=== PATIENT | female | born 1955 | race Caucasian/White ===

== ENCOUNTER → 2017-08-28 09:40 | Outpatient (CLI) | payer MEDICAID, SELFPAY ==
[2017-08-28 11:34] LABS: International Normalized Ratio 2.8; Prothrombin Time (Protime)PT. 29.8 SECONDS (11.7-14.9)
[2017-08-28 11:49] LABS: ALB/GLOB Ratio 0.8 RATIO (0.9-2.4); AST(SGOT) 26 U/L (15-37); Alanine Aminotransfer ALT/SGPT 36 U/L (13-56); Albumin, Serum 3.5 g/dL (3.2-5.0); Alkaline Phosphatase 144 U/L (45-117); Anion Gap 4 (5-15); BUN 17 mg/dL (7-18); BUN/Creat Ratio 17.5 RATIO (10-20); Calcium,Total 9.1 mg/dL (8.5-10.1); Chloride 108 mmol/L (98-107); Creatinine, Serum 0.97 mg/dL (0.55-1.02); EST Glomerular Filtration Rate 62 mL/min (>60); Est Glom Filt Rate - Afr Amer 75 mL/min (>60); Globulin 4.6 g/dL (2.2-4.2); Glucose 122 mg/dL (74-106); Potassium 4.7 mmol/L (3.5-5.1); Protein, Total 8.1 g/dL (6.4-8.2); Sodium Level 142 mmol/L (136-145)
== END ==
PROVIDERS: PCP Internal Medicine; Visit Provider Nurse Practitioner
DX: I48.2 Chronic atrial fibrillation (principal); E78.2 Mixed hyperlipidemia
CPT/HCPCS: 36415; 80053; 85610

== ENCOUNTER → 2017-09-25 09:05 | Outpatient (CLI) | payer MEDICAID, SELFPAY ==
[2017-09-25 11:52] LABS: International Normalized Ratio 2.1; Magnesium 2.1 mg/dL (1.6-2.6); Prothrombin Time (Protime)PT. 23.5 SECONDS (11.7-14.9)
== END ==
PROVIDERS: PCP Internal Medicine; Visit Provider Nurse Practitioner
DX: I48.2 Chronic atrial fibrillation (principal); Z51.81 Encounter for therapeutic drug level monitoring
CPT/HCPCS: 36415; 83735; 85610

== ENCOUNTER → 2017-10-23 10:13 | Outpatient (CLI) | payer MEDICAID, SELFPAY ==
[2017-10-23 11:15] LABS: Prothrombin Time Fingerstick 18.4 SEC (11.9-14.4)
== END ==
PROVIDERS: PCP Internal Medicine; Visit Provider Internal Medicine
DX: I48.2 Chronic atrial fibrillation (principal)
CPT/HCPCS: 36416; 85610

== ENCOUNTER → 2017-11-06 09:33 | Outpatient (CLI) | payer MEDICAID, SELFPAY ==
[2017-11-06 10:56] LABS: Prothrombin Time Fingerstick 29.5 SEC (11.9-14.4)
== END ==
PROVIDERS: PCP Internal Medicine; Visit Provider Internal Medicine
DX: I48.2 Chronic atrial fibrillation (principal)
CPT/HCPCS: 36416; 85610

== ENCOUNTER → 2017-11-20 08:21 | Outpatient (CLI) | payer MEDICAID, SELFPAY ==
[2017-11-20 09:36] LABS: Prothrombin Time Fingerstick 26.9 SEC (11.9-14.4)
== END ==
PROVIDERS: PCP Internal Medicine; Visit Provider Internal Medicine
DX: I48.2 Chronic atrial fibrillation (principal)
CPT/HCPCS: 36416; 85610

== ENCOUNTER → 2017-12-04 08:33 | Outpatient (CLI) | payer MEDICAID, SELFPAY ==
[2017-12-04 09:45] LABS: Prothrombin Time Fingerstick 34.9 SEC (11.9-14.4)
== END ==
PROVIDERS: PCP Internal Medicine; Visit Provider Internal Medicine
DX: I48.2 Chronic atrial fibrillation (principal)
CPT/HCPCS: 36416; 85610

== ENCOUNTER → 2017-12-18 08:18 | Outpatient (CLI) | payer MEDICAID, SELFPAY ==
[2017-12-18 14:40] LABS: Prothrombin Time Fingerstick 29.4 SEC (11.9-14.4)
== END ==
PROVIDERS: PCP Internal Medicine; Visit Provider Internal Medicine
DX: I48.2 Chronic atrial fibrillation (principal)
CPT/HCPCS: 36416; 85610

== ENCOUNTER → 2017-12-31 08:43 | Outpatient (CLI) | payer MEDICAID, SELFPAY ==
[2017-12-31 11:00] LABS: Prothrombin Time Fingerstick 33.8 SEC (11.9-14.4)
== END ==
PROVIDERS: PCP Internal Medicine; Visit Provider Internal Medicine
DX: I48.2 Chronic atrial fibrillation (principal)
CPT/HCPCS: 36416; 85610

== ENCOUNTER → 2018-01-15 08:30 | Outpatient (CLI) | payer MEDICAID, SELFPAY ==
[2018-01-15 10:06] LABS: Prothrombin Time Fingerstick 29.1 SEC (11.9-14.4)
== END ==
PROVIDERS: PCP Internal Medicine; Visit Provider Internal Medicine
DX: I48.2 Chronic atrial fibrillation (principal)
CPT/HCPCS: 36416; 85610

== ENCOUNTER → 2018-02-12 08:59 | Outpatient (CLI) | payer MEDICAID, SELFPAY ==
[2018-02-12 10:25] LABS: Prothrombin Time Fingerstick 33.1 SEC (11.9-14.4)
== END ==
PROVIDERS: PCP Internal Medicine; Visit Provider Internal Medicine
DX: I48.2 Chronic atrial fibrillation (principal)
CPT/HCPCS: 36416; 85610

== ENCOUNTER → 2018-03-11 08:13 | Outpatient (CLI) | payer MEDICAID, SELFPAY ==
[2018-03-11 09:46] LABS: Absolute Lymphocyte Count 1.61 X10^3/ul (0.83-4.51); Absolute Neutrophil Count 3.4 X10^3/uL (2.0-7.7); Basophil# 0.01 X10^3/uL; Basophil% 0.2 % (0-1); Eosinophil# 0.06 X10^3/uL; Eosinophils% 1.1 % (0-5); Hematocrit 39.1 % (37-47); Hemoglobin 12.9 g/dl (12.0-15.0); Lymphocyte # 1.61 X10^3/ul (4.0); Lymphocyte % 29.7 % (19-41); Mean Corpuscular Hgb 30.9 pg (27.0-32.0); Mean Corpuscular Volume 93.8 fL (81-99); Mean Platelet Vol. 9.6 fl (6.2-12.0); Monocyte# 0.34 X10^3/uL; Monocyte% 6.3 % (0-10); Neutrophil % 62.7 % (47-70); Platelet Count 192 K/mm3 (150-450); RBC Distribution Width CV 13.1 % (11.6-14.6); RBC Distribution Width SD 44.8 fl (35.1-43.9); Red Blood Count 4.17 M/mm3 (4.2-5.4); White Blood Count 5.4 K/mm3 (4.4-11.0)
[2018-03-11 09:48] LABS: POSITIVE COUNT NO; POSITIVE DIFFERENTIAL NO; POSITIVE MORPHOLOGY NO
[2018-03-11 10:06] LABS: International Normalized Ratio 2.6; Prothrombin Time (Protime)PT. 28.2 SECONDS (11.7-14.9)
[2018-03-11 10:20] LABS: ALB/GLOB Ratio 0.8 RATIO (0.9-2.4); AST(SGOT) 24 U/L (15-37); Alanine Aminotransfer ALT/SGPT 35 U/L (13-56); Albumin, Serum 3.7 g/dL (3.2-5.0); Alkaline Phosphatase 149 U/L (45-117); Anion Gap 6 (5-15); BUN 15 mg/dL (7-18); BUN/Creat Ratio 17.5 RATIO (10-20); Calcium,Total 8.7 mg/dL (8.5-10.1); Chloride 107 mmol/L (98-107); Cholesterol 169 mg/dL (200); Creatinine, Serum 0.86 mg/dL (0.55-1.02); EST Glomerular Filtration Rate 72 mL/min (>60); Est Glom Filt Rate - Afr Amer 87 mL/min (>60); Globulin 4.7 g/dL (2.2-4.2); Glucose 98 mg/dL (74-106); High Density Lipoprotein 57 mg/dL; Potassium 4.3 mmol/L (3.5-5.1); Protein, Total 8.4 g/dL (6.4-8.2); Sodium Level 139 mmol/L (136-145); Triglycerides 207 mg/dL; Very Low Density Lipoprotein 41 mg/dL (5-40)
[2018-03-11 10:30] LABS: Digoxin Level 1.06 ng/mL (0.80-2.00)
== END ==
PROVIDERS: PCP Internal Medicine; Visit Provider Internal Medicine
DX: I48.2 Chronic atrial fibrillation (principal); E78.2 Mixed hyperlipidemia
CPT/HCPCS: 36415; 80053; 80061; 80162; 85025; 85610

== ENCOUNTER 2018-03-18 13:48 | Emergency (ER) | payer MEDICAID, SELFPAY ==
[2018-03-18 13:50] VITALS: BP 147/89; PULSE 102; RESP 23; TEMP 37.3; O2SAT 93; BMI 27.1
[2018-03-18 13:56] VITALS: BP 147/89; PULSE 101; RESP 20; TEMP 37.3; O2SAT 94
--- NOTE | 2018-03-18 14:28 | EKG12_ITS ---
Test Reason : ALTERED LOC Blood Pressure : / mmHG Vent. Rate : 109 BPM Atrial Rate : 094 BPM P-R Int : 000 ms QRS Dur : 080 ms QT Int : 342 ms P-R-T Axes : 000 -06 -17 degrees QTc Int : 460 ms Atrial fibrillation Nonspecific ST and T wave abnormality Abnormal ECG Confirmed by ALANNAH VÁZQUEZ, GABINO ([id number]), photograph editor STALIN SALINAS ([id number]) on 03/23/2018 3:53:17 PM Referred By: COMPA Confirmed By:GABINO JAFFE MD
--- NOTE | 2018-03-18 14:28 | RAD_ITS ---
STUDY: X-RAY CHEST REASON FOR EXAM: Female, 62 years old. Increased agitation and combativeness TECHNIQUE: Single AP portable view of the chest. COMPARISON: None. FINDINGS: There are monitoring devices. There are interstitial fibrotic changes of the lungs. There is no demonstrated pleural abnormality. There is moderate cardiac enlargement. Normal mediastinum and adelso. Normal visualized pulmonary arteries. Normal visualized aortic arch and descending thoracic aorta. Normal visualized thoracic spine. Normal visualized ribs, clavicles, and shoulders. There is no demonstrated abnormality of the visualized soft tissue structures of the upper abdomen. RAD/Chest 1 View (Portable) IMPRESSION: Cardiac enlargement. Fibrotic densities. Electronically Signed: Eliud Elizabeth MD at 16:01 EDT , Service support ,
[2018-03-18 14:44] LABS: Absolute Lymphocyte Count 1.27 X10^3/ul (0.83-4.51); Absolute Neutrophil Count 7.1 X10^3/uL (2.0-7.7); Basophil# 0.03 X10^3/uL; Basophil% 0.3 % (0-1); Eosinophil# 0.06 X10^3/uL; Eosinophils% 0.7 % (0-5); Hematocrit 39.3 % (37-47); Hemoglobin 12.9 g/dl (12.0-15.0); Lymphocyte # 1.27 X10^3/ul (4.0); Lymphocyte % 14.2 % (19-41); Mean Corp Hgb Conc 32.8 g/gl (32-36); Mean Corpuscular Hgb 30.6 pg (27.0-32.0); Mean Corpuscular Volume 93.3 fL (81-99); Mean Platelet Vol. 9.8 fl (6.2-12.0); Monocyte# 0.53 X10^3/uL; Monocyte% 5.9 % (0-10); Neutrophil # 7.06 X10^3/uL (2.7-7.7); Neutrophil % 78.8 % (47-70); Platelet Count 203 K/mm3 (150-450); RBC Distribution Width CV 13.1 % (11.6-14.6); RBC Distribution Width SD 44.3 fl (35.1-43.9); Red Blood Count 4.21 M/mm3 (4.2-5.4)
[2018-03-18 14:54] LABS: POSITIVE COUNT NO; POSITIVE DIFFERENTIAL NO; POSITIVE MORPHOLOGY NO
[2018-03-18 14:56] LABS: International Normalized Ratio 2.4; Prothrombin Time (Protime)PT. 25.9 SECONDS (11.7-14.9)
[2018-03-18 14:57] LABS: ALB/GLOB Ratio 0.7 RATIO (0.9-2.4); AST(SGOT) 22 U/L (15-37); Alanine Aminotransfer ALT/SGPT 33 U/L (13-56); Albumin, Serum 3.6 g/dL (3.2-5.0); Alkaline Phosphatase 148 U/L (45-117); Anion Gap 7 (5-15); BUN 22 mg/dL (7-18); BUN/Creat Ratio 19.5 RATIO (10-20); Calcium,Total 8.7 mg/dL (8.5-10.1); Chloride 108 mmol/L (98-107); Creatinine, Serum 1.13 mg/dL (0.55-1.02); EST Glomerular Filtration Rate 52 mL/min (>60); Est Glom Filt Rate - Afr Amer 63 mL/min (>60); Estimated Creatinine Clearance 37.55 ml/min; Glucose 138 mg/dL (74-106); Potassium 4.4 mmol/L (3.5-5.1); Protein, Total 8.6 g/dL (6.4-8.2); Sodium Level 140 mmol/L (136-145)
[2018-03-18 15:14] LABS: Mucous, Urine 0 SEEN /hpf (<or=2+)
[2018-03-18 15:16] LABS: Color, Urine Yellow (Yellow); Glucose, Dipstick Normal (Normal); Ketone-Dipstick 5 mg/dl (Negative); Leukocyte Esterase-Dipstick 100 /ul (Negative); Nitrite-Dipstick Negative (Negative); Occult Blood-Urine 150 /ul (Negative); Protein-Dipstick 100 mg/dl (Negative); Urine Bilirubin Dipstick Negative (Negative); Urine Clarity Sl. Cloudy (Clear); Urine Urobilinogen Normal (Normal)
[2018-03-18 15:58] LABS: Bacteria 4+ /hpf (None Seen); Red Blood Cells-Urine 0-5 SEEN /hpf (0-5); Squamous Epithelial Cells - UA 0-5 SEEN /hpf (5-10); White Blood Cells 0-5 SEEN /hpf (0-5)
[2018-03-18 15:59] LABS: Amorphous Sediment 1+
[2018-03-18 16:03] LABS: Hyaline Cast 0-5 SEEN /lpf (0-5)
--- NOTE | 2018-03-18 16:14 | CT_ITS ---
STUDY: CT BRAIN WITHOUT CONTRAST REASON FOR EXAM: Female, 62 years old. Altered level of consciousness. Increased agitation. History of stroke. RADIATION DOSAGE (If Supplied By Facility): CTDIvol = ( 45 ) mGy, DLP = ( 796 ) mGycm TECHNIQUE: Transaxial CT imaging of the brain was performed without administration of intravenous contrast material. Individualized dose optimization techniques were used for this CT. COMPARISON: None. FINDINGS: Normal soft tissue structures. Normal calvarium. 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 There is mild cerebral atrophy with widening of the extra-axial spaces and ventricular dilatation. There is encephalomalacia with volume loss of the left frontal, temporal, and parietal regions in the middle cerebral artery territory. There is volume loss and encephalomalacia of the right medial occipital lobe . Normal basal ganglia and thalami. Normal brainstem. Normal cerebellum. There is no intracranial hemorrhage. There are no findings of an acute ischemic infarction. Normal visualized paranasal sinuses. CT/Brain/Head without Contrast IMPRESSION: Chronic involutional changes of the brain. Prior left middle cerebral artery territory infarct. Prior right posterior cerebral artery territory infarct. Electronically Signed: Eliud Elizabeth MD at 16:47 EDT , Service support ,
[2018-03-18 16:22] LABS: Phenytoin (Dilantin) Level 8.4 mL (10.0-20.0)
[2018-03-18 16:38] VITALS: BP 152/120; PULSE 89; RESP 21; O2SAT 95
--- NOTE | 2018-03-18 16:38 | ED.VISSUMM ---
- ER Visit Summary Date of Service: 03/18/18 Chief Complaint: Altered level of consciousness History of Present Illness: The patient is a 62 F who lives at home with her family. He has history of prior stroke resulting in disabilities.. Apparently today she had a heart doctor appointment and the patient became combative stating she did not want to go because she did not want to have surgery. Apparently this is been an issue in the past but not for the past several years. Patient has a history of seizure disorder for which she takes Dilantin but family states that is actually nonepileptic seizures but she will not will not go without her Dilantin. She has a history of stroke resulting in some behavioral issues. Also known history of atrial fibrillation and had a valve repair as a child. She is on Coumadin as well as digoxin. Patient states that she has no complaints at the current time other than she does not want surgery. She also states that she is with twins and cannot wait to give . She denies any auditory hallucinations. No suicidal homicidal ideation. Physical Examination: Afebrile vital signs are stable Gen: Well-nourished well-developed Head: Normocephalic atraumatic Eyes: Perrl EOMI ENT: TMs clear no rhinorrhea moist mucous membranes Neck: Supple no lymphadenopathy no JVD nontender CVS: Irregularly irregular rhythm no murmurs normal S1-S2 Respiratory: No distress clear to auscultation bilaterally chest nontender Abdomen: Soft nontender nondistended normal bowel sounds no masses Back: Nontender Extremity: Nontender no edema Skin: Normal color no rash Neuro: alert orientated ?3 CN II-XII intact normal strength sensation reflexes gait cerebellar Psych: Normal affect normal mood Test Results: EKG shows atrial fibrillation at a rate of 109. This however has varied on the monitor and is mostly in the 90s. CBC chemistries with a creatinine 1.13 BUN of 22. INR 2.4. Liver enzymes normal. Urinalysis 4+ bacteria but negative nitrates 0-5 white 2-5 red 0-5 epithelial cells. Dilantin subtherapeutic at 8.4. Chest x-ray is negative. CT of the brain does not show any acute findings. Emergency Department Course and Treatment: If the today's visit is mostly behavioral in nature and probably component of geriatric psych. I think she would benefit from psychiatric care however family does not wish to have a crisis evaluation tonight stating that caregiver cannot drive in the dark. They have asked that I write some low-dose Xanax which the patient has used in the past with good results. I will also refer them to counseling center. I will contact the counselor almond paste molder helen for referral. Impression: 1. Altered level consciousness resolved 2. Behavioral disturbance This note was generated with [employer] dictation software. It may contain incorrect words, spelling, and punctuation that were not noted in review of the chart prior to signing ED Disposition - Plan for ED Patient: Disposition: Home or Assisted Living Chief Complaint: Alt LOC Instructions: ED Altered Loc Prescriptions: ALPRAZolam [Xanax] 0.5 mg PO BID PRN 8 Days #16 tab PRN Reason: Anxiety Referrals: Chuck Rivera MD [Primary Care Provider] - As soon as possible Counseling,Center [GROUP OF PHYSICIANS] - As soon as possible
--- NOTE | 2018-03-18 16:45 | ED.DCSUM_ITS ---
- ER Visit Summary Date of Service: 03/18/18 Chief Complaint: Altered level of consciousness History of Present Illness: The patient is a 62 F who lives at home with her family. He has history of prior stroke resulting in disabilities.. Apparently today she had a heart doctor appointment and the patient became combative stating she did not want to go because she did not want to have surgery. Apparently this is been an issue in the past but not for the past several years. Patient has a history of seizure disorder for which she takes Dilantin but family states that is actually nonepileptic seizures but she will not will not go without her Dilantin. She has a history of stroke resulting in some be havioral issues. Also known history of atrial fibrillation and had a valve repair as a child. She is on Coumadin as well as digoxin. Patient states that she has no complaints at the current time other than she does not want surgery. She also states that she is with twins and cannot wait to give . She denies any auditory hallucinations. No suicidal homicidal ideation. Physical Examination: Afebrile vital signs are stable Gen: Well-nourished well-developed Head: Normocephalic atraumatic Eyes: Perrl EOMI ENT: TMs clear no rhinorrhea moist mucous membranes Neck: Supple no lymphadenopathy no JVD nontender CVS: Irregularly irregular rhythm no murmurs normal S1-S2 Respiratory: No distress clear to auscultation bilaterally chest nontender Abdomen: Soft nontender nondistended normal bowel sounds no masses Back: Nontender Extremity: Nontender no edema Skin: Normal color no rash Neuro: alert orientated ?3 CN II-XII intact normal strength sensation reflexes gait cerebellar Psych: Normal affect normal mood Test Results: EKG shows atrial fibrillation at a rate of 109. This however has varied on the monitor and is mostly in the 90s. CBC chemistries with a creatinine 1.13 BUN of 22. INR 2.4. Liver enzymes normal. Urinalysis 4+ bacteria but negative nitrates 0-5 white 2-5 red 0-5 epithelial cells. Dilantin subtherapeutic at 8.4. Chest x-ray is negative. CT of the brain does not show any acute findings. Emergency Department Course and Treatment: If the today's visit is mostly be havioral in nature and probably component of geriatric psych. I think she would benefit from psychiatric care however family does not wish to have a crisis evaluation tonight stating that caregiver cannot drive in the dark. They have asked that I write some low-dose Xanax which the patient has used in the past with good results. I will also refer them to counseling center. I [facility] the counselor [facility] for [facility]. Impression: 1. Altered level consciousness resolved 2. Behavioral disturbance This note was generated with [employer] dictation software. It may contain incorrect words, spelling, and punctuation that were not noted in review of the chart prior to signing ED Disposition - Plan for ED Patient: Disposition: Home or Assisted Living Chief Complaint: Alt LOC Instructions: ED Altered Loc Prescriptions: ALPRAZolam [Xanax] 0.5 mg PO BID PRN 8 Days #16 tab PRN Reason: Anxiety Referrals: Chuck Rivera MD [Primary Care Provider] - As soon as possible Counseling,Center [GROUP OF PHYSICIANS] - As soon as possible
[2018-03-18 16:46] LABS: Digoxin Level 1.02 ng/mL (0.80-2.00)
[2018-03-18 17:30] VITALS: BP 153/99; PULSE 91; RESP 18; O2SAT 99
== END 2018-03-18 17:30 | disposition home or self-care (01) ==
PROVIDERS: Emergency Provider Emergency Medicine; Family Provider Internal Medicine; PCP Internal Medicine
DX: R40.4 Transient alteration of awareness (principal); F91.9 Conduct disorder, unspecified; G40.909 Epilepsy, unspecified, not intractable, without status epilepticus; I48.91 Unspecified atrial fibrillation; Z79.01 Long term (current) use of anticoagulants; Z79.899 Other long term (current) drug therapy; Z87.891 Personal history of nicotine dependence; Z86.73 Personal history of transient ischemic attack (TIA), and cerebral infarction without residual deficits
CPT/HCPCS: 70450; 71045; 80053; 80162; 80185; 81001; 85025; 85610; 93005; 99285

== ENCOUNTER → 2018-04-10 09:11 | Outpatient (CLI) | payer MEDICAID, SELFPAY ==
[2018-04-10 10:26] LABS: Prothrombin Time Fingerstick 30.6 SEC (11.9-14.4)
== END ==
PROVIDERS: Family Provider Internal Medicine; PCP Internal Medicine; Visit Provider Internal Medicine
DX: I48.2 Chronic atrial fibrillation (principal)
CPT/HCPCS: 36416; 85610

== ENCOUNTER → 2018-05-13 08:53 | Outpatient (CLI) | payer MEDICAID, SELFPAY | PROVIDERS: Family Provider Internal Medicine; PCP Internal Medicine; Visit Provider Internal Medicine | DX: I48.2 Chronic atrial fibrillation (principal) | CPT/HCPCS: 36416; 85610 ==

== ENCOUNTER → 2018-06-11 08:32 | Outpatient (CLI) | payer MEDICAID, SELFPAY ==
[2018-06-11 10:25] LABS: Prothrombin Time Fingerstick 27.9 SEC (11.9-14.4)
== END ==
PROVIDERS: Family Provider Internal Medicine; PCP Internal Medicine; Visit Provider Internal Medicine
DX: I48.2 Chronic atrial fibrillation (principal)
CPT/HCPCS: 36416; 85610

== ENCOUNTER → 2018-07-10 08:23 | Outpatient (CLI) | payer MEDICAID, SELFPAY ==
[2018-07-10 09:51] LABS: Prothrombin Time Fingerstick 27.4 SEC (11.9-14.4)
== END ==
PROVIDERS: Family Provider Internal Medicine; PCP Internal Medicine; Visit Provider Internal Medicine
DX: I48.2 Chronic atrial fibrillation (principal)
CPT/HCPCS: 36416; 85610

== ENCOUNTER → 2018-08-07 09:01 | Outpatient (CLI) | payer MEDICAID, SELFPAY ==
[2018-08-07 10:26] LABS: Prothrombin Time Fingerstick 51.4 SEC (11.9-14.4)
[2018-08-07 10:45] LABS: Prothrombin Time (Protime)PT. 40.4 SECONDS (11.7-14.9)
[2018-08-07 10:54] LABS: International Normalized Ratio 4.1
== END ==
PROVIDERS: Family Provider Internal Medicine; PCP Internal Medicine; Visit Provider Internal Medicine
DX: I48.2 Chronic atrial fibrillation (principal)
CPT/HCPCS: 36416; 85610

== ENCOUNTER → 2018-08-14 09:19 | Outpatient (CLI) | payer MEDICAID, SELFPAY ==
[2018-08-14 10:30] LABS: International Normalized Ratio 2.1; Prothrombin Time (Protime)PT. 23.4 SECONDS (11.7-14.9)
== END ==
PROVIDERS: Family Provider Internal Medicine; PCP Internal Medicine; Visit Provider Internal Medicine
DX: I48.2 Chronic atrial fibrillation (principal)
CPT/HCPCS: 36415; 85610

== ENCOUNTER → 2018-08-21 08:15 | Outpatient (CLI) | payer MEDICAID, SELFPAY ==
[2018-08-21 09:46] LABS: Prothrombin Time Fingerstick 46.2 SEC (11.9-14.4)
== END ==
PROVIDERS: Family Provider Internal Medicine; PCP Internal Medicine; Visit Provider Internal Medicine
DX: I48.2 Chronic atrial fibrillation (principal)
CPT/HCPCS: 36416; 85610

== ENCOUNTER → 2018-08-24 09:07 | Outpatient (CLI) | payer MEDICAID, SELFPAY ==
[2018-08-24 11:16] LABS: International Normalized Ratio 1.9; Prothrombin Time (Protime)PT. 21.9 SECONDS (11.7-14.9)
== END ==
PROVIDERS: Family Provider Internal Medicine; PCP Internal Medicine; Visit Provider Internal Medicine
DX: I48.2 Chronic atrial fibrillation (principal)
CPT/HCPCS: 36415; 85610

== ENCOUNTER → 2018-09-01 09:31 | Outpatient (CLI) | payer MEDICAID, SELFPAY ==
[2018-09-01 11:01] LABS: Prothrombin Time Fingerstick 25.5 SEC (11.9-14.4)
== END ==
PROVIDERS: Family Provider Internal Medicine; PCP Internal Medicine; Visit Provider Internal Medicine
DX: I48.2 Chronic atrial fibrillation (principal)
CPT/HCPCS: 36416; 85610

== ENCOUNTER → 2018-09-15 | Outpatient (CLI) | payer MEDICAID, SELFPAY ==
[2018-09-15 10:26] LABS: Prothrombin Time Fingerstick 38.8 SEC (11.9-14.4)
== END | disposition home or self-care (01) ==
LOC: LAB 09:07
PROVIDERS: Family Provider Internal Medicine; PCP Internal Medicine; Visit Provider Internal Medicine
DX: I48.2 Chronic atrial fibrillation (principal)
CPT/HCPCS: 36416; 85610

== ENCOUNTER → 2018-09-29 | Outpatient (CLI) | payer MEDICAID, SELFPAY ==
[2018-09-29 09:36] LABS: Hematocrit 38.5 % (37-47); Hemoglobin 12.6 g/dl (12.0-15.0); Mean Corp Hgb Conc 32.7 g/gl (32-36); Mean Corpuscular Hgb 30.2 pg (27.0-32.0); Mean Corpuscular Volume 92.3 fL (81-99); Mean Platelet Vol. 9.5 fl (6.2-12.0); Platelet Count 220 K/mm3 (150-450); RBC Distribution Width CV 13.1 % (11.6-14.6); RBC Distribution Width SD 43.6 fl (35.1-43.9); Red Blood Count 4.17 M/mm3 (4.2-5.4); White Blood Count 6.3 K/mm3 (4.4-11.0)
[2018-09-29 09:37] LABS: Scan Indicated on CBC? Y/N NO
[2018-09-29 09:48] LABS: ALB/GLOB Ratio 0.7 RATIO (0.9-2.4); AST(SGOT) 21 U/L (15-37); Alanine Aminotransfer ALT/SGPT 28 U/L (13-56); Albumin, Serum 3.7 g/dL (3.2-5.0); Alkaline Phosphatase 96 U/L (45-117); Anion Gap 3 (5-15); BUN 13 mg/dL (7-18); Calcium,Total 9.3 mg/dL (8.5-10.1); Chloride 108 mmol/L (98-107); Cholesterol 209 mg/dL (200); EST Glomerular Filtration Rate 60 mL/min (>60); Est Glom Filt Rate - Afr Amer 72 mL/min (>60); Glucose 92 mg/dL (74-106); High Density Lipoprotein 54 mg/dL; Potassium 5.5 mmol/L (3.5-5.1); Protein, Total 8.7 g/dL (6.4-8.2); Sodium Level 140 mmol/L (136-145); Triglycerides 215 mg/dL; Very Low Density Lipoprotein 43 mg/dL (5-40)
[2018-09-29 09:49] LABS: International Normalized Ratio 2.1; Prothrombin Time (Protime)PT. 23.6 SECONDS (11.7-14.9)
[2018-09-29 10:24] LABS: Digoxin Level 1.52 ng/mL (0.80-2.00); Phenytoin (Dilantin) Level 3.1 mL (10.0-20.0)
== END | disposition home or self-care (01) ==
LOC: LAB 08:37
PROVIDERS: Family Provider Internal Medicine; PCP Internal Medicine; Visit Provider Internal Medicine
DX: G40.909 Epilepsy, unspecified, not intractable, without status epilepticus (principal); E78.2 Mixed hyperlipidemia; I48.2 Chronic atrial fibrillation
CPT/HCPCS: 36415; 80053; 80061; 80162; 80185; 85027; 85610

== ENCOUNTER → 2018-10-13 | Outpatient (CLI) | payer MEDICAID, SELFPAY ==
[2018-10-13 11:01] LABS: Prothrombin Time Fingerstick 28.8 SEC (11.9-14.4)
== END | disposition home or self-care (01) ==
LOC: LAB 09:05
PROVIDERS: Family Provider Internal Medicine; PCP Internal Medicine; Visit Provider Internal Medicine
DX: I48.2 Chronic atrial fibrillation (principal)
CPT/HCPCS: 36416; 85610

== ENCOUNTER → 2018-11-03 | Outpatient (CLI) | payer MEDICAID, SELFPAY ==
[2018-11-03 10:00] LABS: Prothrombin Time Fingerstick 44.3 SEC (11.9-14.4)
[2018-11-03 10:36] LABS: International Normalized Ratio 4.2; Prothrombin Time (Protime)PT. 41.1 SECONDS (11.7-14.9)
== END | disposition home or self-care (01) ==
LOC: LAB 08:29
PROVIDERS: Family Provider Internal Medicine; PCP Internal Medicine; Visit Provider Internal Medicine
DX: I48.2 Chronic atrial fibrillation (principal)
CPT/HCPCS: 36416; 85610

== ENCOUNTER → 2018-11-10 | Outpatient (REF) | payer MEDICAID, SELFPAY ==
[2018-11-10 12:10] LABS: Prothrombin Time Fingerstick 24.2 SEC (11.9-14.4)
== END | disposition home or self-care (01) ==
LOC: LAB 08:51
PROVIDERS: Family Provider Internal Medicine; PCP Internal Medicine; Visit Provider Internal Medicine
DX: I48.2 Chronic atrial fibrillation (principal)
CPT/HCPCS: 36416; 85610

== ENCOUNTER → 2018-11-24 | Outpatient (CLI) | payer MEDICAID, SELFPAY ==
[2018-11-24 10:40] LABS: Prothrombin Time Fingerstick 30.8 SEC (11.9-14.4)
== END | disposition home or self-care (01) ==
LOC: LAB 09:26
PROVIDERS: Visit Provider Internal Medicine
DX: I48.2 Chronic atrial fibrillation (principal)
CPT/HCPCS: 36416; 85610

== ENCOUNTER → 2018-12-08 | Outpatient (CLI) | payer MEDICAID, SELFPAY ==
[2018-12-08 11:20] LABS: Prothrombin Time Fingerstick 40.7 SEC (11.9-14.4)
[2018-12-08 11:53] LABS: International Normalized Ratio 3.4; Prothrombin Time (Protime)PT. 34.5 SECONDS (11.7-14.9)
== END | disposition home or self-care (01) ==
LOC: LAB 08:36
PROVIDERS: Visit Provider Internal Medicine
DX: I48.2 Chronic atrial fibrillation (principal)
CPT/HCPCS: 36416; 85610

== ENCOUNTER → 2018-12-22 09:21 | Outpatient (CLI) | payer MEDICAID, SELFPAY ==
[2018-12-22 11:30] LABS: Prothrombin Time Fingerstick 38.5 SEC (11.9-14.4)
== END ==
PROVIDERS: Visit Provider Internal Medicine
DX: I48.2 Chronic atrial fibrillation (principal)
CPT/HCPCS: 36416; 85610

== ENCOUNTER → 2019-01-05 | Outpatient (CLI) | payer MEDICAID, SELFPAY ==
[2019-01-05 10:25] LABS: Prothrombin Time Fingerstick 28.9 SEC (11.9-14.4)
== END | disposition home or self-care (01) ==
LOC: LAB 07:13
PROVIDERS: Visit Provider Internal Medicine
DX: I48.2 Chronic atrial fibrillation (principal)
CPT/HCPCS: 36416; 85610

== ENCOUNTER → 2019-01-26 | Outpatient (CLI) | payer MEDICAID, SELFPAY ==
[2019-01-26 09:53] LABS: International Normalized Ratio 2.9; Prothrombin Time (Protime)PT. 30.3 SECONDS (11.7-14.9)
[2019-01-26 09:59] LABS: Anion Gap 2 (5-15); BUN 20 mg/dL (7-18); BUN/Creat Ratio 15.9 RATIO (10-20); Chloride 107 mmol/L (98-107); Creatinine, Serum 1.26 mg/dL (0.55-1.02); EST Glomerular Filtration Rate 46 mL/min (>60); Est Glom Filt Rate - Afr Amer 55 mL/min (>60); Glucose 96 mg/dL (74-106); Potassium 5.1 mmol/L (3.5-5.1); Sodium Level 140 mmol/L (136-145)
== END | disposition home or self-care (01) ==
LOC: LABSPEC 08:31
PROVIDERS: Visit Provider Internal Medicine
DX: I34.0 Nonrheumatic mitral (valve) insufficiency (principal); I48.2 Chronic atrial fibrillation
CPT/HCPCS: 36415; 80048; 85610

== ENCOUNTER → 2019-02-16 09:15 | Outpatient (CLI) | payer MEDICAID, SELFPAY ==
[2019-02-16 12:20] LABS: Prothrombin Time Fingerstick 30.4 SEC (11.9-14.4)
== END ==
PROVIDERS: Visit Provider Internal Medicine
DX: I48.2 Chronic atrial fibrillation (principal)
CPT/HCPCS: 36416; 85610

== ENCOUNTER → 2019-03-09 09:00 | Outpatient (CLI) | payer MEDICAID, SELFPAY ==
[2019-03-09 13:08] LABS: Prothrombin Time Fingerstick 34.4 SEC (11.9-14.4)
== END ==
PROVIDERS: Visit Provider Internal Medicine
DX: I48.20 Chronic atrial fibrillation, unspecified (principal)
CPT/HCPCS: 36416; 85610

== ENCOUNTER → 2019-03-23 08:59 | Outpatient (CLI) | payer MEDICAID, SELFPAY ==
[2019-03-23 13:15] LABS: Prothrombin Time Fingerstick 37.4 SEC (11.9-14.4)
== END ==
PROVIDERS: Visit Provider Internal Medicine
DX: I48.20 Chronic atrial fibrillation, unspecified (principal)
CPT/HCPCS: 36416; 85610

== ENCOUNTER → 2019-04-06 | Outpatient (CLI) | payer MEDICAID, SELFPAY ==
[2019-04-06 13:38] LABS: Prothrombin Time Fingerstick 30.4 SEC (11.9-14.4)
== END | disposition home or self-care (01) ==
LOC: LAB 09:12
PROVIDERS: Visit Provider Internal Medicine
DX: I48.20 Chronic atrial fibrillation, unspecified (principal)
CPT/HCPCS: 36416; 85610

== ENCOUNTER → 2019-04-20 09:05 | Outpatient (CLI) | payer MEDICAID, SELFPAY ==
[2019-04-20 11:45] LABS: Prothrombin Time Fingerstick 31.8 SEC (11.9-14.4)
== END ==
PROVIDERS: Visit Provider Internal Medicine
DX: I48.20 Chronic atrial fibrillation, unspecified (principal)
CPT/HCPCS: 36416; 85610

== ENCOUNTER → 2019-05-04 08:59 | Outpatient (CLI) | payer MEDICAID, SELFPAY ==
[2019-05-04 10:56] LABS: Prothrombin Time Fingerstick 31.8 SEC (11.9-14.4)
== END ==
PROVIDERS: Visit Provider Internal Medicine
DX: I48.20 Chronic atrial fibrillation, unspecified (principal)
CPT/HCPCS: 36416; 85610

== ENCOUNTER → 2019-05-25 05:05 | Outpatient (CLI) | payer MEDICAID, SELFPAY | PROVIDERS: Visit Provider Internal Medicine | DX: I48.20 Chronic atrial fibrillation, unspecified (principal) | CPT/HCPCS: 36416; 85610 ==

== ENCOUNTER → 2019-06-22 08:47 | Outpatient (CLI) | payer MEDICAID, SELFPAY ==
[2019-06-22 10:06] LABS: Prothrombin Time Fingerstick 32.8 SEC (11.9-14.4)
== END ==
PROVIDERS: Visit Provider Internal Medicine
DX: I48.20 Chronic atrial fibrillation, unspecified (principal)
CPT/HCPCS: 36416; 85610

== ENCOUNTER → 2019-07-20 09:09 | Outpatient (CLI) | payer MEDICAID, SELFPAY ==
[2019-07-20 10:41] LABS: Prothrombin Time Fingerstick 32.8 SEC (11.9-14.4)
== END ==
PROVIDERS: Visit Provider Internal Medicine
DX: I48.20 Chronic atrial fibrillation, unspecified (principal)
CPT/HCPCS: 36416; 85610

== ENCOUNTER → 2019-08-17 08:23 | Outpatient (CLI) | payer MEDICAID, SELFPAY ==
[2019-08-17 11:10] LABS: Prothrombin Time Fingerstick 36.3 SEC (11.9-14.4)
== END ==
PROVIDERS: Visit Provider Internal Medicine
DX: I48.20 Chronic atrial fibrillation, unspecified (principal)
CPT/HCPCS: 36416; 85610

== ENCOUNTER → 2019-08-31 07:20 | Outpatient (CLI) | payer MEDICAID, SELFPAY ==
[2019-08-31 10:55] LABS: Prothrombin Time Fingerstick 30.3 SEC (11.9-14.4)
== END ==
PROVIDERS: PCP Internal Medicine; Visit Provider Internal Medicine
DX: I48.20 Chronic atrial fibrillation, unspecified (principal)
CPT/HCPCS: 36416; 85610

== ENCOUNTER → 2019-10-12 05:33 | Outpatient (CLI) | payer MEDICAID, SELFPAY ==
[2019-10-12 09:11] LABS: Prothrombin Time Fingerstick 26.3 SEC (11.9-14.4)
== END ==
PROVIDERS: PCP Internal Medicine; Visit Provider Internal Medicine
DX: I48.20 Chronic atrial fibrillation, unspecified (principal)
CPT/HCPCS: 36416; 85610

== ENCOUNTER → 2019-11-24 08:18 | Outpatient (CLI) | payer MEDICAID, SELFPAY ==
[2019-11-24 10:21] LABS: Prothrombin Time Fingerstick 31.2 SEC (11.9-14.4)
== END ==
PROVIDERS: PCP Internal Medicine; Referring Provider Internal Medicine; Visit Provider Internal Medicine
DX: I48.20 Chronic atrial fibrillation, unspecified (principal)
CPT/HCPCS: 36416; 85610

== ENCOUNTER → 2019-12-14 08:06 | Outpatient (CLI) | payer MEDICAID, SELFPAY ==
[2019-12-14 11:10] LABS: Prothrombin Time Fingerstick 27.4 SEC (11.9-14.4)
== END ==
PROVIDERS: PCP Internal Medicine; Visit Provider Internal Medicine
DX: I48.20 Chronic atrial fibrillation, unspecified (principal)
CPT/HCPCS: 36416; 85610

== ENCOUNTER → 2020-01-11 08:14 | Outpatient (CLI) | payer MEDICAID, SELFPAY ==
[2020-01-11 11:11] LABS: Prothrombin Time Fingerstick 29.5 SEC (11.9-14.4)
== END ==
PROVIDERS: PCP Internal Medicine; Referring Provider Internal Medicine; Visit Provider Internal Medicine
DX: I48.20 Chronic atrial fibrillation, unspecified (principal)
CPT/HCPCS: 36416; 85610

== ENCOUNTER → 2020-02-08 09:19 | Outpatient (CLI) | payer MEDICAID, SELFPAY ==
[2020-02-08 10:46] LABS: Prothrombin Time Fingerstick 28.8 SEC (11.9-14.4)
== END ==
PROVIDERS: PCP Internal Medicine; Visit Provider Internal Medicine
DX: I48.20 Chronic atrial fibrillation, unspecified (principal)
CPT/HCPCS: 36416; 85610

== ENCOUNTER → 2020-03-15 07:17 | Outpatient (CLI) | payer MEDICAID, SELFPAY ==
[2020-03-15 10:31] LABS: Prothrombin Time Fingerstick 25.9 SEC (11.9-14.4)
== END ==
PROVIDERS: PCP Internal Medicine; Visit Provider Internal Medicine
DX: I48.20 Chronic atrial fibrillation, unspecified (principal)
CPT/HCPCS: 36416; 85610

== ENCOUNTER → 2020-04-26 07:26 | Outpatient (CLI) | payer MEDICAID, SELFPAY ==
[2020-04-26 10:01] LABS: Prothrombin Time Fingerstick 29.3 SEC (11.9-14.4)
== END ==
PROVIDERS: PCP Internal Medicine; Visit Provider Internal Medicine
DX: I48.20 Chronic atrial fibrillation, unspecified (principal); Z79.01 Long term (current) use of anticoagulants
CPT/HCPCS: 36416; 85610

== ENCOUNTER → 2020-06-06 05:26 | Outpatient (CLI) | payer MEDICAID, SELFPAY ==
[2020-06-06 12:22] LABS: Hematocrit 40.1 % (37-47); Hemoglobin 12.7 g/dL (12.0-15.0); Mean Corp Hgb Conc 31.7 g/dL (32-36); Mean Corpuscular Hgb 29.2 pg (27.0-32.0); Mean Corpuscular Volume 92.2 fL (81-99); Mean Platelet Vol. 10.1 fl (6.2-12.0); Platelet Count 212 K/mm3 (150-450); RBC Distribution Width CV 13.4 % (11.6-14.6); RBC Distribution Width SD 45.6 fl (35.1-43.9); Red Blood Count 4.35 M/mm3 (4.2-5.4); White Blood Count 6.7 K/mm3 (4.4-11.0)
[2020-06-06 12:39] LABS: International Normalized Ratio 2.1; Prothrombin Time (Protime)PT. 22.8 SECONDS (11.7-14.9)
[2020-06-06 13:04] LABS: ALB/GLOB Ratio 0.8 RATIO (0.9-2.4); AST(SGOT) 15 U/L (15-37); Alanine Aminotransfer ALT/SGPT 20 U/L (13-56); Alkaline Phosphatase 83 U/L (45-117); Anion Gap 7 (5-15); BUN 21 mg/dL (7-18); Calcium,Total 9.8 mg/dL (8.5-10.1); Chloride 108 mmol/L (98-107); Cholesterol 157 mg/dL (200); Creatinine, Serum 1.05 mg/dL (0.55-1.02); EST Glomerular Filtration Rate 56 mL/min (>60); Est Glom Filt Rate - Afr Amer 68 mL/min (>60); Globulin 4.9 g/dL (2.2-4.2); Glucose 86 mg/dL (74-106); High Density Lipoprotein 48 mg/dL; Potassium 4.5 mmol/L (3.5-5.1); Protein, Total 8.9 g/dL (6.4-8.2); Sodium Level 141 mmol/L (136-145); Triglycerides 164 mg/dL; Very Low Density Lipoprotein 33 mg/dL (5-40)
[2020-06-06 13:08] LABS: Digoxin Level 1.31 ng/mL (0.80-2.00)
== END ==
PROVIDERS: PCP Internal Medicine; Referring Provider Internal Medicine; Visit Provider Internal Medicine
DX: Z12.11 Encounter for screening for malignant neoplasm of colon (principal); I48.20 Chronic atrial fibrillation, unspecified; N28.9 Disorder of kidney and ureter, unspecified; E78.2 Mixed hyperlipidemia; Z51.81 Encounter for therapeutic drug level monitoring; Z79.01 Long term (current) use of anticoagulants
CPT/HCPCS: 36415; 80053; 80061; 80162; 82274; 85027; 85610

== ENCOUNTER → 2020-07-11 08:41 | Outpatient (CLI) | payer MEDICAID, SELFPAY ==
[2020-07-11 11:25] LABS: International Normalized Ratio 1.9; Prothrombin Time (Protime)PT. 21.5 SECONDS (11.7-14.9)
== END ==
PROVIDERS: PCP Internal Medicine; Visit Provider Internal Medicine
DX: Z79.01 Long term (current) use of anticoagulants (principal)
CPT/HCPCS: 36415; 85610

== ENCOUNTER → 2020-08-01 04:41 | Outpatient (REF) | payer MEDICAID, SELFPAY ==
[2020-08-01 12:25] LABS: Prothrombin Time Fingerstick 28.2 SEC (11.9-14.4)
== END ==
LOC: LAB 04:41
PROVIDERS: PCP Internal Medicine; Visit Provider Internal Medicine
DX: Z79.01 Long term (current) use of anticoagulants (principal)
CPT/HCPCS: 36416; 85610

== ENCOUNTER → 2020-08-29 09:08 | Outpatient (CLI) | payer MEDICAID, SELFPAY ==
[2020-08-29 11:33] LABS: Prothrombin Time (Protime)PT. 21.8 SECONDS (11.7-14.9)
[2020-08-29 11:39] LABS: Anion Gap 1 (5-15); BUN 19 mg/dL (7-18); BUN/Creat Ratio 17.4 RATIO (10-20); Chloride 108 mmol/L (98-107); Creatinine, Serum 1.09 mg/dL (0.55-1.02); EST Glomerular Filtration Rate 54 mL/min (>60); Est Glom Filt Rate - Afr Amer 65 mL/min (>60); Glucose 81 mg/dL (74-106); Potassium 4.9 mmol/L (3.5-5.1); Sodium Level 140 mmol/L (136-145)
== END ==
PROVIDERS: PCP Internal Medicine; Visit Provider Internal Medicine
DX: R79.89 Other specified abnormal findings of blood chemistry (principal); Z79.01 Long term (current) use of anticoagulants
CPT/HCPCS: 36415; 80048; 85610

== ENCOUNTER → 2020-09-19 08:09 | Outpatient (REF) | payer MEDICAID, SELFPAY ==
[2020-09-19 09:45] LABS: INR Fingerstick 2.4; Prothrombin Time Fingerstick 26.6 SEC (11.9-14.4)
== END ==
LOC: LAB 08:09
PROVIDERS: PCP Internal Medicine; Visit Provider Internal Medicine
DX: Z79.01 Long term (current) use of anticoagulants (principal)
CPT/HCPCS: 36416; 85610

== ENCOUNTER → 2020-10-10 07:42 | Outpatient (CLI) | payer MEDICAID, SELFPAY ==
[2020-10-10 11:11] LABS: INR Fingerstick 2.2; Prothrombin Time Fingerstick 24.7 SEC (11.9-14.4)
== END ==
PROVIDERS: PCP Internal Medicine; Referring Provider Internal Medicine; Visit Provider Internal Medicine
DX: Z79.01 Long term (current) use of anticoagulants (principal)
CPT/HCPCS: 36416; 85610

== ENCOUNTER → 2020-11-08 09:35 | Outpatient (CLI) | payer MEDICAID, SELFPAY ==
[2020-11-08 11:00] LABS: INR Fingerstick 1.7; Prothrombin Time Fingerstick 20.2 SEC (11.9-14.4)
== END ==
PROVIDERS: PCP Internal Medicine; Referring Provider Internal Medicine; Visit Provider Internal Medicine
DX: Z79.01 Long term (current) use of anticoagulants (principal)
CPT/HCPCS: 36416; 85610

== ENCOUNTER → 2020-11-21 04:17 | Outpatient (CLI) | payer MEDICAID, SELFPAY ==
[2020-11-21 10:51] LABS: INR Fingerstick 2.3; Prothrombin Time Fingerstick 25.5 SEC (11.9-14.4)
== END ==
PROVIDERS: PCP Internal Medicine; Referring Provider Internal Medicine; Visit Provider Internal Medicine
DX: Z79.01 Long term (current) use of anticoagulants (principal)
CPT/HCPCS: 36416; 85610

== ENCOUNTER → 2020-12-12 09:40 | Outpatient (CLI) | payer MEDICAID, SELFPAY ==
[2020-12-12 10:30] LABS: INR Fingerstick 2.4; Prothrombin Time Fingerstick 27.1 SEC (11.9-14.4)
== END ==
PROVIDERS: PCP Internal Medicine; Referring Provider Internal Medicine; Visit Provider Internal Medicine
DX: Z79.01 Long term (current) use of anticoagulants (principal)
CPT/HCPCS: 36416; 85610

== ENCOUNTER → 2021-01-09 04:22 | Outpatient (CLI) | payer MEDICAID, SELFPAY ==
[2021-01-09 10:05] LABS: INR Fingerstick 2.1; Prothrombin Time Fingerstick 24.2 SEC (11.9-14.4)
== END ==
PROVIDERS: PCP Internal Medicine; Referring Provider Internal Medicine; Visit Provider Internal Medicine
DX: Z79.01 Long term (current) use of anticoagulants (principal)
CPT/HCPCS: 36416; 85610

== ENCOUNTER → 2021-02-06 03:27 | Outpatient (CLI) | payer MEDICAID, SELFPAY | PROVIDERS: PCP Internal Medicine; Referring Provider Internal Medicine; Visit Provider Internal Medicine | DX: Z79.01 Long term (current) use of anticoagulants (principal) | CPT/HCPCS: 36416; 85610 ==

== ENCOUNTER → 2021-03-13 03:52 | Outpatient (CLI) | payer MEDICAID, SELFPAY ==
[2021-03-13 08:42] LABS: INR Fingerstick 4.7; Prothrombin Time Fingerstick 49.7 SEC (11.9-14.4)
[2021-03-13 09:08] LABS: Prothrombin Time (Protime)PT. 38.1 SECONDS (11.7-14.9)
== END ==
PROVIDERS: PCP Internal Medicine; Visit Provider Internal Medicine
DX: Z79.01 Long term (current) use of anticoagulants (principal)
CPT/HCPCS: 36416; 85610

== ENCOUNTER → 2021-03-16 07:57 | Outpatient (CLI) | payer MEDICAID, SELFPAY ==
[2021-03-16 11:25] LABS: INR Fingerstick 2.6; Prothrombin Time Fingerstick 28.7 SEC (11.9-14.4)
== END ==
PROVIDERS: PCP Internal Medicine; Visit Provider Internal Medicine
DX: Z79.01 Long term (current) use of anticoagulants (principal)
CPT/HCPCS: 36416; 85610

== ENCOUNTER → 2021-03-30 07:54 | Outpatient (CLI) | payer MEDICAID, SELFPAY ==
[2021-03-30 10:06] LABS: INR Fingerstick 3.2; Prothrombin Time Fingerstick 35.4 SEC (11.9-14.4)
== END ==
PROVIDERS: PCP Internal Medicine; Visit Provider Internal Medicine
DX: Z79.01 Long term (current) use of anticoagulants (principal)
CPT/HCPCS: 36416; 85610

== ENCOUNTER → 2021-04-16 08:01 | Outpatient (CLI) | payer MEDICAID, SELFPAY ==
[2021-04-16 09:10] LABS: INR Fingerstick 2.2; Prothrombin Time Fingerstick 25.1 SEC (11.9-14.4)
== END ==
PROVIDERS: PCP Internal Medicine; Referring Provider Internal Medicine; Visit Provider Internal Medicine
DX: Z79.01 Long term (current) use of anticoagulants (principal)
CPT/HCPCS: 36416; 85610

== ENCOUNTER → 2021-05-14 08:34 | Outpatient (CLI) | payer MEDICAID, SELFPAY ==
[2021-05-14 10:11] LABS: International Normalized Ratio 2.7; Prothrombin Time (Protime)PT. 27.4 SECONDS (11.7-14.9)
[2021-05-14 11:04] LABS: ALB/GLOB Ratio 0.7 RATIO (0.9-2.4); AST(SGOT) 16 U/L (15-37); Alanine Aminotransfer ALT/SGPT 17 U/L (13-56); Albumin, Serum 3.5 g/dL (3.2-5.0); Alkaline Phosphatase 74 U/L (45-117); Anion Gap 6 (5-15); BUN 20 mg/dL (7-18); BUN/Creat Ratio 16.7 RATIO (10-20); Calcium,Total 9.5 mg/dL (8.5-10.1); Chloride 112 mmol/L (98-107); Cholesterol 126 mg/dL (200); Digoxin Level 1.64 ng/mL (0.80-2.00); EST Glomerular Filtration Rate 48 mL/min (>60); Est Glom Filt Rate - Afr Amer 58 mL/min (>60); Globulin 4.8 g/dL (2.2-4.2); Glucose 95 mg/dL (74-106); High Density Lipoprotein 47 mg/dL; Potassium 4.6 mmol/L (3.5-5.1); Protein, Total 8.3 g/dL (6.4-8.2); Sodium Level 142 mmol/L (136-145); Triglycerides 139 mg/dL; Very Low Density Lipoprotein 28 mg/dL (5-40)
== END ==
PROVIDERS: PCP Internal Medicine; Visit Provider Internal Medicine
DX: I48.91 Unspecified atrial fibrillation (principal); E78.2 Mixed hyperlipidemia; Z79.01 Long term (current) use of anticoagulants
CPT/HCPCS: 36415; 80053; 80061; 80162; 85610

== ENCOUNTER 2021-06-12 11:31 | Outpatient (CLI) | payer MEDICAID, SELFPAY ==
[2021-06-12 11:56] LABS: Anion Gap 8 (5-15); BUN 21 mg/dL (7-18); BUN/Creat Ratio 20.4 RATIO (10-20); Calcium,Total 9.7 mg/dL (8.5-10.1); Chloride 109 mmol/L (98-107); Creatinine, Serum 1.03 mg/dL (0.55-1.02); EST Glomerular Filtration Rate 57 mL/min (>60); Est Glom Filt Rate - Afr Amer 69 mL/min (>60); Glucose 92 mg/dL (74-106); Potassium 5.1 mmol/L (3.5-5.1); Sodium Level 143 mmol/L (136-145)
[2021-06-12 14:29] LABS: International Normalized Ratio 1.9; Prothrombin Time (Protime)PT. 21.2 SECONDS (11.7-14.9)
== END 2021-06-12 23:59 | disposition short-term general hospital (02) ==
LOC: LAB 11:32
PROVIDERS: PCP Internal Medicine; Visit Provider Internal Medicine
DX: Z79.01 Long term (current) use of anticoagulants (principal)
CPT/HCPCS: 36415; 80048; 85610

== ENCOUNTER 2021-07-09 09:10 | Outpatient (CLI) | payer MEDICAID, SELFPAY ==
[2021-07-09 10:50] LABS: INR Fingerstick 1.9; Prothrombin Time Fingerstick 22.3 SEC (11.9-14.4)
== END 2021-07-09 23:59 | disposition short-term general hospital (02) ==
LOC: LAB 09:11
PROVIDERS: PCP Internal Medicine; Referring Provider Internal Medicine; Visit Provider Internal Medicine
DX: Z79.01 Long term (current) use of anticoagulants (principal)
CPT/HCPCS: 36416; 85610

== ENCOUNTER 2021-07-24 04:41 | Outpatient (CLI) | payer MEDICAID, SELFPAY ==
[2021-07-24 10:26] LABS: INR Fingerstick 1.7; Prothrombin Time Fingerstick 20.1 SEC (11.9-14.4)
== END 2021-07-24 23:59 | disposition home or self-care (01) ==
LOC: LAB 04:42
PROVIDERS: PCP Internal Medicine; Visit Provider Internal Medicine
DX: Z79.01 Long term (current) use of anticoagulants (principal)
CPT/HCPCS: 36416; 85610

== ENCOUNTER 2021-08-07 09:15 | Outpatient (CLI) | payer MEDICAID, SELFPAY ==
[2021-08-07 11:15] LABS: INR Fingerstick 2.1; Prothrombin Time Fingerstick 25.1 SEC (11.9-14.4)
== END 2021-08-07 23:59 | disposition home or self-care (01) ==
LOC: LAB 09:18
PROVIDERS: PCP Internal Medicine; Visit Provider Internal Medicine
DX: Z79.01 Long term (current) use of anticoagulants (principal); I48.91 Unspecified atrial fibrillation
CPT/HCPCS: 36416; 85610

== ENCOUNTER 2021-08-21 08:14 | Outpatient (CLI) | payer MEDICAID, SELFPAY ==
[2021-08-21 11:31] LABS: INR Fingerstick 1.8; Prothrombin Time Fingerstick 21.5 SEC (11.7-14.9)
== END 2021-08-21 23:59 | disposition home or self-care (01) ==
LOC: LAB 08:15
PROVIDERS: PCP Internal Medicine; Visit Provider Internal Medicine
DX: I48.91 Unspecified atrial fibrillation (principal)
CPT/HCPCS: 36416; 85610

== ENCOUNTER 2021-09-04 08:06 | Outpatient (CLI) | payer MEDICAID, SELFPAY ==
[2021-09-07 10:16] LABS: Prothrombin Time Fingerstick 44.1 SEC (11.7-14.9)
== END 2021-09-04 23:59 | disposition home or self-care (01) ==
LOC: LAB 08:07
PROVIDERS: PCP Internal Medicine; Visit Provider Internal Medicine
DX: I48.91 Unspecified atrial fibrillation (principal)
CPT/HCPCS: 36416; 85610

== ENCOUNTER 2021-09-07 08:00 | Outpatient (CLI) | payer MEDICAID, SELFPAY ==
[2021-09-07 10:16] LABS: INR Fingerstick 1.8; Prothrombin Time Fingerstick 21.7 SEC (11.7-14.9)
== END 2021-09-07 23:59 | disposition home or self-care (01) ==
LOC: LAB 08:01
PROVIDERS: PCP Internal Medicine; Referring Provider Internal Medicine; Visit Provider Internal Medicine
DX: I48.91 Unspecified atrial fibrillation (principal)
CPT/HCPCS: 36416; 85610

== ENCOUNTER 2021-09-14 09:28 | Outpatient (CLI) | payer MEDICAID, SELFPAY ==
[2021-09-14 10:56] LABS: Prothrombin Time Fingerstick 23.4 SEC (11.7-14.9)
== END 2021-09-14 23:59 | disposition home or self-care (01) ==
LOC: LAB 09:31
PROVIDERS: PCP Internal Medicine; Visit Provider Internal Medicine
DX: I48.91 Unspecified atrial fibrillation (principal)
CPT/HCPCS: 36416; 85610

== ENCOUNTER → 2021-10-09 | Outpatient (CLI) | payer MEDICAID, SELFPAY ==
[2021-10-09 11:40] LABS: INR Fingerstick 2.4; Prothrombin Time Fingerstick 27.4 SEC (11.7-14.9)
== END | disposition home or self-care (01) ==
LOC: LAB 08:41
PROVIDERS: PCP Internal Medicine; Visit Provider Internal Medicine
DX: I48.91 Unspecified atrial fibrillation (principal)
CPT/HCPCS: 36416; 85610

== ENCOUNTER → 2021-10-30 | Outpatient (CLI) | payer MEDICAID, SELFPAY ==
[2021-10-30 10:15] LABS: INR Fingerstick 2.2; Prothrombin Time Fingerstick 25.9 SEC (11.7-14.9)
== END | disposition home or self-care (01) ==
LOC: LAB 07:58
PROVIDERS: PCP Internal Medicine; Visit Provider Internal Medicine
DX: I48.91 Unspecified atrial fibrillation (principal)
CPT/HCPCS: 36416; 85610

== ENCOUNTER → 2021-11-08 | Outpatient (CLI) | payer MEDICAID, SELFPAY ==
[2021-11-08 11:55] LABS: Hematocrit 36.1 % (37-47); Hemoglobin 11.1 g/dL (12.0-15.0); Mean Corp Hgb Conc 30.7 g/dL (32-36); Mean Corpuscular Hgb 29.3 pg (27.0-32.0); Mean Corpuscular Volume 95.3 fL (81-99); Mean Platelet Vol. 10.4 fl (6.2-12.0); Platelet Count 174 K/mm3 (150-450); RBC Distribution Width CV 14.7 % (11.6-14.6); RBC Distribution Width SD 51.7 fl (35.1-43.9); Red Blood Count 3.79 M/mm3 (4.2-5.4); White Blood Count 9.3 K/mm3 (4.4-11.0)
[2021-11-08 12:16] LABS: ALB/GLOB Ratio 0.8 RATIO (0.9-2.4); AST(SGOT) 15 U/L (15-37); Alanine Aminotransfer ALT/SGPT 20 U/L (13-56); Albumin, Serum 3.8 g/dL (3.2-5.0); Alkaline Phosphatase 72 U/L (45-117); Anion Gap 7 (5-15); BUN 18 mg/dL (7-18); BUN/Creat Ratio 17.1 RATIO (10-20); Calcium,Total 9.2 mg/dL (8.5-10.1); Chloride 106 mmol/L (98-107); Creatinine, Serum 1.05 mg/dL (0.55-1.02); EST Glomerular Filtration Rate 56 mL/min (>60); Est Glom Filt Rate - Afr Amer 68 mL/min (>60); Globulin 4.9 g/dL (2.2-4.2); Glucose 125 mg/dL (74-106); Potassium 4.4 mmol/L (3.5-5.1); Protein, Total 8.7 g/dL (6.4-8.2); Sodium Level 137 mmol/L (136-145); Thyroid Stim Hormone (TSH) 0.61 uIU/mL (0.358-3.74)
[2021-11-08 12:22] LABS: Digoxin Level 0.88 ng/mL (0.80-2.00)
[2021-11-08 13:24] LABS: Vitamin D,25 Hydroxy 31.8 ng/mL
== END | disposition home or self-care (01) ==
LOC: LAB 09:27
PROVIDERS: PCP Internal Medicine; Referring Provider Internal Medicine; Visit Provider Internal Medicine
DX: I12.9 Hypertensive chronic kidney disease with stage 1 through stage 4 chronic kidney disease, or unspecified chronic kidney disease (principal); G81.11 Spastic hemiplegia affecting right dominant side; I48.91 Unspecified atrial fibrillation; G40.909 Epilepsy, unspecified, not intractable, without status epilepticus; N18.32 Chronic kidney disease, stage 3b; R63.4 Abnormal weight loss; M81.0 Age-related osteoporosis without current pathological fracture
CPT/HCPCS: 36415; 80053; 80162; 82306; 84443; 85027